=== PATIENT | male | born 1980 | race Caucasian/White ===

== ENCOUNTER 2020-02-09 17:18 | Emergency (ER) | payer OTHER ==
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
[2020-02-09 20:39] VITALS: BP 126/82
== END 2020-02-09 20:39 | disposition home or self-care (01) ==
LOC: ED 17:18
DX: S23.3XXA Sprain of ligaments of thoracic spine, initial encounter (principal); S13.9XXA Sprain of joints and ligaments of unspecified parts of neck, initial encounter; V59.49XA Driver of pick-up truck or van injured in collision with other motor vehicles in traffic accident, initial encounter; Y92.410 Unspecified street and highway as the place of occurrence of the external cause; R03.0 Elevated blood-pressure reading, without diagnosis of hypertension
CPT/HCPCS: 72072; 72125; 99284

== ENCOUNTER 2023-04-23 17:46 | Emergency (ER) | payer OTHER ==
[2023-04-23 17:59] VITALS: BP 140/95; O2SAT 100
[2023-04-23] MEDS ORDERED: DEXAMETHASONE 10 MG/ML VIAL PO STA (18:45)
[2023-04-23] MEDS ORDERED: LIDOCAINE VISCOUS 2% 15 ML ORAL SYRINGE MM STA (18:45)
[2023-04-23] MEDS ORDERED: CHERRY SYRUP 10 ML UDC PO ONE (18:45)
[2023-04-23] MEDS ORDERED: MAG HYDROX/AL HYDROX/SIMETH 30 ML UDC PO STA (18:46)
--- NOTE | 2023-04-23 19:33 | ED Physician Documentation ---
History of Present Illness - Stated complaint Stated Complaint: THROAT INJ - Chief complaint Chief Complaint: Heent - History obtained from History obtained from: Patient - History of Present Illness Timing: Today Pain level max: 0 Pain level now: 0 - Additonal information Additional information: 43 year old male states he sneezed today and states feels like a sunflower seed is stuck in his throat. No difficulty speaking, swallowing or breathing. No wheezing. No stridor. He just feels like there is something stuck in his throat. Otherwise asymptomatic. Review of Systems Constitutional: denies: Fever, Chills Respiratory: denies: Dyspnea, Cough, Wheezing GI: denies: Nausea, Vomiting, Diarrhea PD PAST MEDICAL HISTORY - Past Medical History Past Medical History: No - Past Surgical History Past Surgical History: Yes Ortho: Spine surgery - Present Medications Home Medications: Ambulatory Orders Medication Instructions Recorded Confirmed No Known Home Medications 02/09/20 04/23/23 - Allergies Allergies/Adverse Reactions: Allergies Allergy/AdvReac Type Severity Reaction Status Date / Time No Known Drug Allergies Allergy Verified 04/23/23 17:55 - Social History Does the pt smoke?: No Smoking Status: Never smoker Does the pt drink ETOH?: No Does the pt have substance abuse?: No - Immunizations Immunizations are current?: Yes - POLST Patient has POLST: No PD ED PE NORMAL - Vitals Vital signs reviewed: Yes - General General: Alert and oriented X 3, No acute distress - HEENT HEENT: PERRL, Moist mucous membranes, Pharynx benign, Other (Normal oropharyngeal exam. No visible foreign objects) - Neck Neck: Supple, no meningeal sign - Cardiac Cardiac: RRR - Respiratory Respiratory: No respiratory distress, Clear bilaterally, Other (No stridor. No wheezing.) - Derm Derm: Warm and dry - Neuro Neuro: Alert and oriented X 3 - Psych Psych: Normal mood, Normal affect Results - Vitals Vitals: Vital Signs - 24 hr 04/23/23 17:50 Temperature 36.8 C Heart Rate 64 Respiratory 17 Rate Blood Pressure 140/95 H O2 Saturation 100 Oxygen O2 Source Room air PD Medical Decision Making - ED course Complexity details: reviewed results, re-evaluated patient, considered differential, d/w patient ED course: No visible foreign body. Tolerating p.o. without any difficulty. Was given Maalox, lidocaine and dexamethasone in case there is a scratch in his throat to help with any discomfort. Counseled regarding signs of infection. Patient is very well-appearing, nontoxic. No wheezing or stridor. No indication for emergent imaging, endoscopy or bronchoscopy. No indication for x-ray as the sunflower seed would likely be isodense. Patient counseled regarding signs and symptoms for which I believe and urgent re-evaluation would be necessary. Patient with good understanding of and agreement to plan and is comfortable going home at this time This document was made in part using voice recognition software. While efforts are made to proofread this document, sound alike and grammatical errors may occur. Departure - Departure Disposition: 01 Home, Self Care Clinical Impression: Swallowed foreign body Qualifiers: Encounter type: initial encounter Qualified Code(s): T18.9XXA - Foreign body of alimentary tract, part unspecified, initial encounter Condition: Good Instructions: ED Foreign Body Swallowed Adult Follow-Up: your,doctor as needed [Other] Comments: This should resolve on its own and usually does not require any specific treatment. Please follow-up with your doctor as needed for any further care. Please return if you develop fevers, a severe sore throat, difficulty speaking, swallowing or any other new or worrisome symptoms. Forms: PCP List Discharge Date/Time: 04/23/23 19:46
== END 2023-04-23 19:46 | disposition home or self-care (01) ==
LOC: ED 17:46
DX: T18.9XXA Foreign body of alimentary tract, part unspecified, initial encounter (principal); W44.F3XA Food entering into or through a natural orifice, initial encounter
CPT/HCPCS: 99282; 99283; A9270